=== PATIENT | male | born 1940 | race Caucasian/White ===

== ENCOUNTER 2025-01-14 10:09 | Day surgery (SDC) | payer MEDICARE, SELFPAY ==
[2025-01-14] VITALS (15 sets, daily range): BP systolic 81–127; BP diastolic 53–91; BMI 27.4
--- NOTE | 2025-01-14 13:55 | ITS.CL.ABL ---
[employer] Engineer - Ablation
Ablation
Procedure Report:
ELECTROPHYSIOLOGY ABLATION STUDY
DATE:: January 14, 2025�����������������������������REFERRING: Dr. Cornelius adair
INDICATION: Persistent supraventricular tachycardia in the form of atrial fibrillation.� Refractory to amiodarone therapy
HISTORY: See H and P.��As above
ANTIARRHYTHMIC DRUG: Amiodarone
PRE-PROCEDURE PARISH: No atrial thrombus on intracardiac ultrasound
PRESENTING RHYTHM: Atrial fibrillation
'TIME-OUT':��called and confirmed.
SEDATION/ANESTHESIA:��provided via the anesthesia department using general anesthesia (LMA).
INTRAVENOUS/ARTERIAL ACCESS:
Right femoral venous - 8Fr
Left femoral venous - 8 Fr, 6 Fr
Helitl-su-acmax suture
Ultrasound guidance for bilateral femoral vein access was utilized by me to obtain access with demonstration of normal anatomy
CHADS-VASC Score:
HAS-Bled Score
PROCEDURE:
1.��A decapolar CS catheter was placed within the CS for mapping and pacing.��This was also used as the reference catheter for the 3-D map.
2. The intracardiac ultrasound catheter was positioned in the RA to identify the FO for targeting of transseptal puncture, assist��in identification of the pulmonary vein ostia, monitoring pre and post ablation pulmonary vein flow velocities,
monitoring for 'bubble' formation during RF application as a sign of thermal injury,��and to monitor for pericardial effusion during mapping and ablation procedure.���Left atrial size, LV ejection fraction, and pulmonary vein flows were monitored
pre and post ablation procedure. The other valves were inspected and found to be free of significant regurgitation or stenosis.
3.��Half of the calculated heparin bolus was administered prior to the first transeptal puncture.��Transseptal puncture was performed to diagnose RA and LA pressure so that safety of LA mapping and ablation could be further assessed, and to access
the left atrium and pulmonary veins for mapping and ablation.��This entailed advancing an 16.8 Vietnamese sheath, wire RF, with dilator into the superior vena cava and withdrawing both (monitoring intracardiac ultrasound, fluoroscopy and tip pressure)
with the tip oriented toward the atrial septum.��The fossa ovalis was engaged (indicated by sudden displacement of the sheath tip as well as tenting of the fossa seen on intracardiac ultrasound).��Left atrial access required a pass with the
Brockenbrough needle extended.��Left atrial catheter position was confirmed by pressure monitoring (RA mean pressure 8 mm Hg and LA mean presure 14 mm Hg), LA saturation ( 99 %),��as well as fluoroscopy.��The sheath was advanced over the dilator and
positioned in the left atrium.��This procedure was repeated for the Agilis sheath.��The remainder of the calculated heparin bolus was administered and heparin was
infused to maintain ACT at 300 -350 seconds throughout the case.
4.��RA pacing was performed via the proximal decapolar poles and LA pacing was performed via the distal decapolr poles.
5. A quadrapolar catheter was first positioned at the His position for His Bundle recording which was tagged via the 3-D Navex sytem, and then passed to the RVA for RV pacing and recording.
6. The multipolar catheter and the PFA catheter placed in each of the LIPV, LSPV, RSPV and the RIPV.��
7.��Next, a 3-D map was created using Navex.���A 3-D reconstructed CT image was compared to the 3-D Navex map to assist in anatomic interpretation, mapping and ablation.��The CT image and the NavX image were fused.
8. Total of 51 lesions were given to the pulmonary veins as well as the roof floor and posterior wall of the left atrium. All of and basket pose to the pulmonary veins and flower post to the posterior wall. Entrance block was confirmed and after
1 200 J synchronized biphasic shock sinus rhythm was restored and entrance and exit block was confirmed in all 4 pulmonary veins as well as the LA roof floor and posterior wall.
9. Normal sinus node and AV node function noted.
TOTAL FLOURO TIME: 15.6 minutes 112 mGy
TOTAL RF DURATION: 0 minutes
REVERSAL OF HEPARIN: 35 mg of protamine, slow IV administration
COMPLICATIONS:
None
Intracardiac US shows no pericardial effusion post ablation.
SUMMARY:��
Complex left atrial mapping and ablation.
Isolation of all 4 pulmonary veins including the left atrial posterior wall roof and floor. Noninducible for any other tachyarrhythmia.
RECOMMENDATIONS:
1. Ambulate in 4 hours
2. Resume anticoagulation
3.��Discontinue amiodarone in 1 month
4.��Can consider same-day discharge in 4 to 5 hours
Copy to: Dr. Cornelius adair
[2025-01-14 14:26] LABS: ACT-LR - POC 250 Seconds (116-155)
--- NOTE | 2025-01-14 16:57 | W.PN.UPDATE ---
Update Note
Progress Note Update
84 yo WM s/p PVI (same day). He denies cp, sob, cece diet, b/l groins c/d/i no HT, F08 in place, EKG SR occ PAC's. He will resume Eliquis at 8pm tonight. He will stop Amiodarone after 1 month and continue metoprolol. Activity restrictions reviewed.
He will f/u Dr. Medina as scheduled. He is for d/c home after 645pm if groin stable and able to void.
SUMMARY:��
Complex left atrial mapping and ablation.
Isolation of all 4 pulmonary veins including the left atrial posterior wall roof and floor. Noninducible for any other tachyarrhythmia.
== END 2025-01-14 18:56 | disposition home or self-care (01) ==
LOC: CATH 10:09
PROVIDERS: ATTENDING PHYSICIAN Internal Medicine Cardiovascular Disease; FAMILY PHYSICIAN Family Medicine; OTHER PHYSICIAN Internal Medicine Cardiovascular Disease
DX: I48.19 Other persistent atrial fibrillation (principal); I47.10 Supraventricular tachycardia, unspecified; I34.0 Nonrheumatic mitral (valve) insufficiency; I12.9 Hypertensive chronic kidney disease with stage 1 through stage 4 chronic kidney disease, or unspecified chronic kidney disease; N18.9 Chronic kidney disease, unspecified; Z79.01 Long term (current) use of anticoagulants; Z79.899 Other long term (current) drug therapy
CPT/HCPCS: C1732; C1894; C1730; C1892; C1759; 85347; 86850; 86900; 86901; 93005; 93656; 93657; C1733; C1766; Q9967